=== PATIENT | female | born 1960 | race Caucasian/White ===

== ENCOUNTER 2020-10-02 18:39 | Emergency (ER) | payer BC ==
--- NOTE | 2020-10-02 19:45 | EDM.PDOC ---
ED HPI GENERAL MEDICAL PROBLEM - General Chief Complaint: Lower Extremity Injury/Pain Stated Complaint: LT FOOT INJURY Time Seen by Provider: 10/02/20 19:35 Source of Information: Reports: Patient, Family, RN Notes Reviewed History Limitations: Reports: No Limitations - History of Present Illness INITIAL COMMENTS - FREE TEXT/NARRATIVE: Nidia presents today for complaints of left ankle/foot pain after stepping in a hole today at 1400. She states she has been icing her foot and took ibuprofen 800mg PO at 1600 today. She denies any fever, chills, nausea, vomiting, change in bowel/bladder or any other injury/trauma. Left Ankle Pain Score (Numeric/FACES): 2 - Related Data Allergies Allergy/AdvReac Type Severity Reaction Status Date / Time codeine Allergy Stomach Verified 10/02/20 19:25 Upset Home Meds: Home Meds Levothyroxine 1 tab PO DAILY 10/02/20 [History] Past Medical History HEENT History: Reports: Impaired Vision [employer] History: Reports: Other (See Below) Other [employer]ER History: laparoscopy. tubal - Infectious Disease History Infectious Disease History: Reports: Chicken Pox, Measles Social & Family History - Tobacco Use Tobacco Use Status *Q: Never Tobacco User - Caffeine Use Caffeine Use: Reports: Coffee, Soda, Tea - Recreational Drug Use Recreational Drug Use: No Review of Systems - Review of Systems Review Of Systems: See Below Constitutional: Reports: No Symptoms Eyes: Reports: No Symptoms Ears: Reports: No Symptoms Nose: Reports: No Symptoms Mouth/Throat: Reports: No Symptoms Respiratory: Reports: No Symptoms Cardiovascular: Reports: No Symptoms GI/Abdominal: Reports: No Symptoms Genitourinary: Reports: No Symptoms Musculoskeletal: Reports: Foot Pain, Other (left ankle and dorsal foot pain) Skin: Reports: Bruising (left dorsal foot). Denies: Erythema, Lesions Neurological: Reports: No Symptoms Psychiatric: Reports: No Symptoms ED EXAM, GENERAL - Physical Exam Exam: See Below Exam Limited By: No Limitations General Appearance: Alert, WD/WN, No Apparent Distress Eye Exam: Bilateral Eye: Normal Inspection, PERRL Ears: Normal External Exam, Normal Canal, Hearing Grossly Normal, Normal TMs Throat/Mouth: Normal Inspection, Normal Lips, Normal Gums, Normal Oropharynx, Normal Voice, No Airway Compromise Head: Atraumatic, Normocephalic Neck: Normal Inspection, Supple, Non-Tender, Full Range of Motion. No: Lymphadenopathy (R), Lymphadenopathy (L) Respiratory/Chest: No Respiratory Distress, Lungs Clear, Normal Breath Sounds, No Accessory Muscle Use, Chest Non-Tender. No: Crackles, Rales, Rhonchi, Wheezing Cardiovascular: Normal Peripheral Pulses, Regular Rate, Rhythm, No Edema, No Gallop, No Murmur, No Rub Peripheral Pulses: 4+: Dorsalis Pedis (L), Dorsalis Pedis (R) Back Exam: Normal Inspection, Full Range of Motion. No: CVA Tenderness (R), CVA Tenderness (L) Extremities: No Pedal Edema, Normal Capillary Refill, Limited Range of Motion (due to pain to left ankle, trace edema noted) Neurological: Alert, Oriented, CN II-XII Intact, Normal Cognition, Normal Gait (atalgic gait due to pain of left ankle), Normal Reflexes, No Motor/Sensory Deficits Psychiatric: Normal Affect, Normal Mood Skin Exam: Warm, Dry, Intact, Normal Color, No Rash. No: Ecchymosis, Erythema Lymphatic: No Adenopathy Course - Vital Signs Last Recorded V/S: Last Vital Signs Temp 36.7 C 10/02/20 19:22 Pulse 71 10/02/20 19:22 Resp 16 10/02/20 19:22 BP 151/83 H 10/02/20 19:22 Pulse Ox 97 10/02/20 19:22 - Orders/Labs/Meds Orders: Active Orders 24 hr Category Date Time Status Ankle Min 3V Lt [CR] Stat Exams 10/02/20 19:41 Taken Foot Comp Min 3V Lt [CR] Stat Exams 10/02/20 19:41 Taken - Radiology Interpretation Free Text/Narrative:: Left foot and ankle xrays reviewed, wet read. No acute findings. Radiologist read pending. We will place patient in walking boot, weight bear as tolerated. Departure - Departure Time of Disposition: 20:30 Disposition: Home, Self-Care 01 Condition: Good Clinical Impression: Left ankle strain, Sprain of foot, left - Discharge Information *PRESCRIPTION DRUG MONITORING PROGRAM REVIEWED*: No *COPY OF PRESCRIPTION DRUG MONITORING REPORT IN PATIENT AMAURI: No Referrals: PCP,None [Primary Care Provider] - Forms: ED Department Discharge Additional Instructions: You have been evaluated and treated for left ankle strain and left foot sprain. Wear walking boot at al times for support. Take ibuprofen and tylenol as needed for pain. Rest, ice, elevate the foot for pain. Follow up with podiatry for recheck in 7 to 10 days. Return for any worsening, issues or concerns. Sepsis Event Note (ED) - Evaluation Sepsis Screening Result: No Definite Risk - Focused Exam Vital Signs: Vital Signs Temp Pulse Resp BP Pulse Ox 10/02/20 19:22 36.7 C 71 16 151/83 H 97 - My Orders Last 24 Hours: My Active Orders 10/02/20 19:41 Ankle Min 3V Lt [CR] Stat Foot Comp Min 3V Lt [CR] Stat - Assessment/Plan Last 24 Hours: My Active Orders 10/02/20 19:41 Ankle Min 3V Lt [CR] Stat Foot Comp Min 3V Lt [CR] Stat Assessment:: Left ankle strain, Sprain of foot, left Plan: Patient evaluated and treated for left ankle strain and left foot sprain. Wear walking boot at al times for support. Take ibuprofen and tylenol as needed for pain. Rest, ice, elevate the foot for pain. Follow up with podiatry for recheck in 7 to 10 days. Return for any worsening, issues or concerns.
--- NOTE | 2020-10-04 09:53 | CR ---
Foot Comp Min 3V Lt, Ankle Min 3V Lt CLINICAL HISTORY: Injury FINDINGS: There is no acute fracture or dislocation within the foot. No destructive changes are present. There is osteophytic change and some bunion formation at the first MTP joint IMPRESSION: No acute bony process. Ankle Min 3V Lt CLINICAL HISTORY: Injury FINDINGS: The soft tissues are swollen over the lateral ankle. No acute fracture or dislocation is noted. Ankle mortise is intact. There is some spurring at the talonavicular joint. 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 No fracture
== END 2020-10-02 20:47 | disposition home or self-care (01) ==
LOC: JP.ED 18:39
DX: S93.602A Unspecified sprain of left foot, initial encounter (principal); S96.912A Strain of unspecified muscle and tendon at ankle and foot level, left foot, initial encounter; Z88.5 Allergy status to narcotic agent; Z79.899 Other long term (current) drug therapy; X50.1XXA Overexertion from prolonged static or awkward postures, initial encounter
CPT/HCPCS: 73610-26-LT; 73610-LT; 73630-26-LT; 73630-LT; 99283-25